=== PATIENT | male | born 1970 | race African-American/Black ===

== ENCOUNTER 2022-10-31 00:09 | Emergency (ER) | payer SELFPAY ==
[2022-10-31] MEDS ORDERED: KETOROLAC 30MG/ML VIAL IV STA (01:27)
[2022-10-31] MEDS ORDERED: SODIUM CHLORIDE 0.9% 1,000 ML IV ONE (01:30)
[2022-10-31 03:07] LABS: HEMOGLOBIN. 12.6 g/dL (14.0-18.0); MEAN CORPUSCULAR HEMOGLOBIN 26.2 pg (28.0-32.0); MEAN CORPUSCULAR VOLUME 83.3 fL (80.0-94.0); PLATELET 367 x1000/uL (130-400); RED CELL DISTRIBUTION WIDTH 13.1 % (11.6-14.6)
[2022-10-31 03:17] LABS: CHLORIDE 95 mEq/L (98-107)
[2022-10-31] MEDS ORDERED: CEPHALEXIN 250MG CAPSULE PO ONE (03:45)
[2022-10-31] MEDS ORDERED: SULFAMETHOXAZOLE/TRIMETHOPRIM 800/160MG TABLET PO ONE (03:45)
[2022-10-31] MEDS ORDERED: SULFAMETHOXAZOLE/TRIMETHOPRIM 800/160MG TABLET PO NR (04:00)
[2022-10-31] MEDS ORDERED: CEPHALEXIN 250MG CAPSULE PO NR (04:00)
[2022-10-31] MEDS ORDERED: KETOROLAC 30MG/ML VIAL IV NR (04:00)
[2022-10-31] MEDS ORDERED: HIBIL TP (04:19)
[2022-10-31] MEDS ORDERED: CEPH500C2 MT (04:19)
[2022-10-31] MEDS ORDERED: SULF1TAB48 MT (04:19)
[2022-10-31] MEDS ORDERED: METF-873 MT (04:19)
[2022-10-31] MEDS ORDERED: NAPR-681 MT (04:20)
[2022-10-31 05:09] LABS: PLATELET ESTIMATE NORMAL
[2022-10-31 05:22] VITALS: BP 119/56
== END 2022-10-31 06:10 | disposition home or self-care (01) ==
LOC: ER 00:09
DX: E11.65 Type 2 diabetes mellitus with hyperglycemia (principal); D64.9 Anemia, unspecified; Z79.899 Other long term (current) drug therapy
CPT/HCPCS: 36415; 80053; 83605; 85025; 87040; 96361; 96374; 99284; J1885; J7030; Z7610

== ENCOUNTER 2023-03-03 20:49 | Emergency (ER) | payer SELFPAY ==
[~2023-03-03] VITALS: Ht 185.4 cm; Wt 75.4 kg
[~2023-03-03 20:49] MED LIST: CEPH500C2 MT; HIBIL TP; METF-873 MT; NAPR-681 MT; SULF1TAB48 MT
[2023-03-03 21:14] VITALS: BP 144/87; O2SAT 99
[2023-03-03 21:38] LABS: CLARITY URINE TURBID (CLEAR); COLOR URINE YELLOW (YELLOW); GLUCOSE URINE 3+ (NEGATIVE); KETONES URINE NEGATIVE (NEGATIVE); LEUKOCYTE ESTERASE URINE 2+ (NEGATIVE); NITRITE URINE POSITIVE (NEGATIVE); OCCULT BLOOD URINE 1+ (NEGATIVE); PH URINE 6.5 (4.5-8.0); PROTEIN URINE 1+ (NEGATIVE); SPECIFIC GRAVITY URINE 1.042 (1.005-1.030)
[2023-03-03 22:12] LABS: BACTERIA URINE 3+; SQUAMOUS EPITHELIAL CELL URINE FEW /lpf (RARE/1+)
[2023-03-03 22:13] LABS: WBC URINE TNTC /hpf (0-2)
[2023-03-03 22:59] LABS: BASOPHILS % 0.8 % (0.0-2.0); EOSINOPHILS % 2.1 % (0.0-5.0); HEMOGLOBIN. 11.6 g/dL (14.0-18.0); LYMPHOCYTES % 21.1 % (20.0-50.0); MEAN CORPUSCULAR HEMOGLOBIN 26.1 pg (28.0-32.0); MEAN CORPUSCULAR HGB CONC 32.3 g/dL (31.0-37.0); MEAN CORPUSCULAR VOLUME 80.9 fL (80.0-94.0); MEAN PLATELET VOLUME 7.9 fl (7.4-10.4); MONOCYTES % 7.4 % (2.0-8.0); NEUTROPHILS % 68.6 % (40.0-76.0); PLATELET 388 x1000/uL (130-400); RED BLOOD CELL COUNT 4.45 mill/uL (4.7-6.1); RED CELL DISTRIBUTION WIDTH 12.9 % (11.6-14.6); WHITE BLOOD COUNT 7.4 x1000/uL (4.5-11.0)
[2023-03-03 23:10] LABS: CHLORIDE 103 mEq/L (98-107); INDEX HEMOLYSI 1 (1-3); INDEX ICTERIC 1 (1-4); INDEX LIPEMIC 1 (1-3); POTASSIUM 3.8 mEq/L (3.5-5.1); SODIUM 136 mEq/L (136-145)
[2023-03-03 23:17] LABS: ALANINE AMINOTRANSFERASE 13 IU/L (13-61); ASPARTATE AMINOTRANSFERASE 5 IU/L (15-37); BILIRUBIN TOTAL 0.2 mg/dL (0.1-1.0); CALCIUM 9.4 mg/dL (8.5-10.1); CARBON DIOXIDE 34 mEq/L (21-32); GLUCOSE 341 mg/dL (70-105); PROTEIN TOTAL 8.6 g/dL (6.0-8.3); UREA NITROGEN BLOOD 12 mg/dL (7-21)
[2023-03-03] MEDS ORDERED: DOXYCYCLINE HYCLATE 100MG CAPSULE PO ONE (23:30)
[2023-03-03] MEDS ORDERED: LIDOCAINE HCL 1% 20ML VIAL (Pyxis) INJ INFIL ONE (23:30)
[2023-03-03] MEDS ORDERED: CEFTRIAXONE SODIUM 500 MG/VIAL IM ONE (23:30)
[2023-03-04] MEDS ORDERED: DOXY-456 MT (00:18)
[2023-03-04 00:41] VITALS: PULSE 97; RESP 18; TEMP 98.4
== END 2023-03-04 00:44 | disposition home or self-care (01) ==
LOC: ER 20:49
DX: N45.1 Epididymitis (principal); N39.0 Urinary tract infection, site not specified; D64.9 Anemia, unspecified; E11.65 Type 2 diabetes mellitus with hyperglycemia
CPT/HCPCS: 80053; 81003; 85025; 87086; 87186; 87077; 36415; 93976; 76870; 99285; 96372; J0696; J3490; Z7610 ×2

== ENCOUNTER 2024-05-23 01:00 | Emergency (ER) | payer SELFPAY ==
[~2024-05-23] VITALS: Ht 185.4 cm; Wt 100.0 kg
[~2024-05-23 01:00] MED LIST changes: +AMLO2.5T45 PO; -CEPH500C2 MT; -HIBIL TP; +INSU100I53 SQ; +LANTUSUD SUBCUT; +LISI20TA31 PO; -METF-873 MT; -NAPR-681 MT
[2024-05-23 01:33] VITALS: BP 169/94; PULSE 88; TEMP 98.1; O2SAT 100; O2SAT 99
[2024-05-23 02:54] LABS: CHLORIDE 108 mEq/L (98-107); POTASSIUM 4.8 mEq/L (3.5-5.1); SODIUM 140 mEq/L (136-145)
[2024-05-23 02:55] LABS: CARBON DIOXIDE 24 mEq/L (21-32)
[2024-05-23 03:00] LABS: CREATININE 1.4 mg/dL (0.6-1.3); UREA NITROGEN BLOOD 19 mg/dL (9-23)
[2024-05-23 03:03] LABS: GLUCOSE 347 mg/dL (70-105)
[2024-05-23] MEDS ORDERED: SODIUM CHLORIDE 0.9% 1,000 ML IV ONE (03:45)
[2024-05-23 04:03] LABS: BASOPHILS % 1.5 % (0.0-2.0); EOSINOPHILS % 5.4 % (0.0-5.0); HEMATOCRIT. 36.6 % (42.0-52.0); HEMOGLOBIN. 12.1 g/dL (14.0-18.0); LYMPHOCYTES % 35.4 % (20.0-50.0); MEAN CORPUSCULAR HEMOGLOBIN 28.1 pg (28.0-32.0); MEAN CORPUSCULAR VOLUME 85.1 fL (80.0-94.0); MEAN PLATELET VOLUME 9.2 fl (7.4-10.4); MONOCYTES % 5.8 % (2.0-8.0); NEUTROPHILS % 51.9 % (40.0-76.0); PLATELET 255 x1000/uL (130-400); RED CELL DISTRIBUTION WIDTH 13.4 % (11.6-14.6); WHITE BLOOD COUNT 4.6 x1000/uL (4.5-11.0)
[2024-05-23 04:35] LABS: TROPONIN I HIGH SENSITIVITY 5 ng/L (3.0-53)
[2024-05-23 05:15] VITALS: RESP 18
== END 2024-05-23 05:15 | disposition home or self-care (01) ==
LOC: ER 01:00
DX: L30.9 Dermatitis, unspecified (principal); I87.2 Venous insufficiency (chronic) (peripheral); R60.0 Localized edema; E11.9 Type 2 diabetes mellitus without complications; Z79.899 Other long term (current) drug therapy
CPT/HCPCS: 99284; 93970; 80048; 83880; 85025; 84484; 36415; J7030